=== PATIENT | male | born 1995 | race Two or more races ===

== ENCOUNTER 2017-08-26 13:40 | Emergency (ER) | payer MEDICAID, OTHER ==
[~2017-08-26] VITALS: Ht 162.6 cm; Wt 81.6 kg
[2017-08-26 13:45] VITALS: BP 127/53
[2017-08-26] MEDS ORDERED: LIDOCAINE 1% HCL (LOCAL ANESTH.) INJ 20ML MDV ONE (15:29)
[2017-08-26] MEDS ORDERED: LIDOCAINE 1% HCL (LOCAL ANESTH.) INJ 20ML MDV IJ ONE (16:30)
== END 2017-08-26 16:23 | disposition home or self-care (01) ==
LOC: ER 13:40
DX: S61.412A Laceration without foreign body of left hand, initial encounter (principal); W26.8XXA Contact with other sharp object(s), not elsewhere classified, initial encounter; Y93.89 Activity, other specified; Y92.89 Other specified places as the place of occurrence of the external cause; Y99.8 Other external cause status
CPT/HCPCS: 12002; 99283; J2001